=== PATIENT | female | born 1980 | race Caucasian/White ===

== ENCOUNTER 2018-06-29 05:36 | Day surgery (SDC) | payer BC ==
[~2018-06-29] VITALS: Ht 157.5 cm; Wt 116.1 kg
[~2018-06-29 05:36] MED LIST: ADVIL200 MG PO; CLARITIN10 M3 PO; FLONASE ALLERG9.9 ML BOTH NARES; HYZAAR 100-21 TABLET PO; SINGULAIR10 MG PO; SPRINTEC1 EACH PO
[2018-06-29 06:29] VITALS: BP 144/90
[2018-06-29] MEDS ORDERED: IBUPROFEN800 MG PO (10:50)
[2018-06-29] MEDS ORDERED: ENDOCET 5-3251 EACH PO (10:50)
[2018-06-29 11:44] VITALS: BP 140/64
[2018-06-29 12:39] VITALS: BP 127/63
[2018-06-29 13:14] VITALS: BP 117/62
== END 2018-06-29 13:20 | disposition home or self-care (01) ==
LOC: SDC 05:36
PROC: 0TJB8ZZ Inspection of Bladder, Via Natural or Artificial Opening Endoscopic (ICD-10-PCS; principal; 2018-06-29)
PROC: 0UT94ZZ Resection of Uterus, Percutaneous Endoscopic Approach (ICD-10-PCS; principal; 2018-06-29)
DX: N72 Inflammatory disease of cervix uteri (principal); N80.0 Endometriosis of uterus; N94.3 Premenstrual tension syndrome; K66.0 Peritoneal adhesions (postprocedural) (postinfection); I10 Essential (primary) hypertension; K21.9 Gastro-esophageal reflux disease without esophagitis; Z91.013 Allergy to seafood
CPT/HCPCS: 88307; J0131; J0330; J0690; J1100; J1170; J1885; J2250; J2405; J2710; J3010; J7643; Q0175